=== PATIENT | female | born 1965 | race African-American/Black ===

== ENCOUNTER → 2019-06-02 | Outpatient (CLI) | payer BC | LOC: RAD 15:22 | DX: Z12.31 Encounter for screening mammogram for malignant neoplasm of breast (principal) ==

== ENCOUNTER → 2020-06-01 | Outpatient (CLI) | payer BC | LOC: BC 13:31 | DX: Z12.31 Encounter for screening mammogram for malignant neoplasm of breast (principal) ==

== ENCOUNTER → 2021-06-05 | Outpatient (CLI) | payer BC | LOC: BC 15:57 | DX: Z12.31 Encounter for screening mammogram for malignant neoplasm of breast (principal) ==

== ENCOUNTER → 2021-06-26 | Outpatient (CLI) | payer BC | LOC: BC 15:17 | DX: R92.8 Other abnormal and inconclusive findings on diagnostic imaging of breast (principal) ==